=== PATIENT | male | born 1950 | race Caucasian/White ===

== ENCOUNTER 2017-09-12 17:25 | Outpatient (CLI) | payer OTHER ==
--- NOTE | 2017-09-13 09:30 | XRAY Report ---
TWO VIEW CHEST: 09/12/2017 CLINICAL INDICATION: Cough, shortness of breath. COMPARISON: 04/18/2013. FINDINGS: Frontal and lateral views of the chest demonstrate a normal cardiac silhouette. The lungs are clear. No effusion or pneumothorax is present. IMPRESSION: NORMAL CHEST. TD: 09/13/2017 09:29
== END 2017-09-12 17:26 | disposition home or self-care (01) ==
LOC: DI 17:25
PROVIDERS: ATTEND Physician Assistant
DX: R05 Cough (principal); R06.02 Shortness of breath
CPT/HCPCS: 71046

== ENCOUNTER 2019-03-30 08:00 | Outpatient (CLI) | payer OTHER ==
--- NOTE | 2019-03-30 09:34 | Ultrasound Report ---
Reason: RUQ POSTPRANDIAL PAIN Procedure Date: 03/30/2019 Accession Number: [id number] / [id number] Procedure: US - Abdomen Limited CPT Code: FULL RESULT: EXAM: ABDOMEN ULTRASOUND LIMITED, RUQ EXAM DATE: 03/30/2019 08:49 AM. CLINICAL HISTORY: Right upper quadrant postprandial pain. COMPARISON: None. TECHNIQUE: Real-time scanning was performed with static images obtained. FINDINGS: Liver: Normal in size and echotexture. There are 2 small incidental benign-appearing left hepatic cysts of no clinical significance. Vertical span is 14.2 cm. Main portal vein flow: Hepatopetal. Gallbladder: No evidence of wall thickening, positive sonographic Agudelo sign or cholelithiasis. Biliary System: CBD measures 3.0 mm. No intrahepatic or extrahepatic ductal dilatation. Other: Unremarkable right kidney with vertical span of 13.1 cm. IMPRESSION: 1. There are 2 small benign-appearing left hepatic cysts of no clinical significance. 2. Otherwise negative examination. RADIA
[2019-03-30] MEDS ORDERED: SINCALIDE 5 MCG VIAL ONE (10:00)
[2019-03-30] MEDS ORDERED: SINCALIDE 2 MCG in SODIUM CHLORIDE 0.9% 50 ML IV ONE (11:34)
--- NOTE | 2019-03-30 14:30 | Nuclear Medicine Report ---
Reason: ABDOMINAL AORTIC ANEURYSM, THORACIC AORTIC ANEURYS Procedure Date: 03/30/2019 Accession Number: [id number] Procedure: NM - Hepatobiliary HIDA w/ Rx CPT Code: FULL RESULT: EXAM: HEPATOBILIARY SCAN WITH CCK/KINEVAC ADMINISTRATION EXAM DATE: 03/30/2019 11:37 AM. CLINICAL HISTORY: Postprandial right upper quadrant pain. COMPARISON: None. TECHNIQUE: Following the intravenous administration of 5.3 mCi of Tc99m Mebrofenin, a hepatobiliary scan was done centered on the liver and gallbladder in multiple sequential images and projections. Following the intravenous administration of 2.0 mcg of CCK/ Kinevac over the course of approximately 60 minutes, dynamic imaging was done and the gallbladder ejection fraction was calculated. FINDINGS: Normal clearance of blood pool activity indicating grossly normal hepatocellular function. Liver size and shape grossly normal. Appearance of tracer in the biliary tree as early as 5 minutes, within normal limits. Appearance of tracer in the gallbladder as early as 10 minutes, within normal limits, with good progression of filling throughout the remainder of the initial hour. Appearance of tracer in the small bowel as early as 15 minutes. Following CCK administration, gallbladder ejection fraction is calculated to be 98%, within the normal range (> 35%). No evidence of significant enterogastric bile reflux. IMPRESSION: 1. No scintigraphic evidence of acute cholecystitis. 2. Patent common bile duct. 3. Gallbladder ejection fraction is in the normal range. 4. No evidence of significant enterogastric bile reflux. RADIA
== END 2019-03-30 08:01 | disposition home or self-care (01) ==
LOC: DI 08:00
PROVIDERS: ATTEND Surgery
DX: K82.8 Other specified diseases of gallbladder (principal); R10.11 Right upper quadrant pain; K76.89 Other specified diseases of liver
CPT/HCPCS: 76705; 78227; J7040

== ENCOUNTER 2022-03-06 08:00 | Outpatient (CLI) | payer MEDICARE, OTHER ==
[2022-03-06 18:08] LABS: BILIRUBIN,URINE NEGATIVE (NEGATIVE); GLUCOSE, URINE (UA) NEGATIVE (NEGATIVE); KETONES,URINE (UA) NEGATIVE (NEGATIVE); LEUKOCYTE ESTERASE, URINE SMALL (NEGATIVE); NITRITE,URINE NEGATIVE (NEGATIVE); OCCULT BLOOD,URINE TRACE-INTA (NEGATIVE); PH,URINE 5.5 PH (5.0-7.5); PROTEIN,URINE 30 mg/dL (NEGATIVE); UROBILINOGEN,URINE 0.2 (NORMAL) E.U./dL (NORMAL)
[2022-03-06 18:11] LABS: CLARITY,URINE HAZY (CLEAR)
[2022-03-06 18:24] LABS: WBC,URINE >25 /HPF (0-3)
[2022-03-06 18:25] LABS: BACTERIA,URINE Many /HPF (None Seen); RBC,URINE 0-5 /HPF (0-5); SQUAMOUS EPITHELIAL CELL,UR NONE SEEN (<= Few)
== END 2022-03-06 23:59 | disposition home or self-care (01) ==
LOC: LAB.S 08:00
PROVIDERS: ATTEND Emergency Medicine
DX: N41.0 Acute prostatitis (principal)
CPT/HCPCS: 81001; 87077; 87086; 87181

== ENCOUNTER 2022-11-24 06:56 | Outpatient (CLI) | payer MEDICARE, OTHER ==
--- NOTE | 2022-11-25 12:37 | Ultrasound Report ---
PROCEDURE: Head or Neck Soft Tissue INDICATIONS: ABN THYROID IMAGING TECHNIQUE: Real-time scanning was performed of the thyroid gland, with image documentation. COMPARISON: None FINDINGS: Right: Thyroid lobe measures 5.8 x 2.6 x 2.3 cm, and is heterogeneous in echotexture. Left: Thyroid lobe measures 7.3 x 3.3 x 2.8 cm, and is heterogeneous in echotexture. Isthmus: 6 mm thick. Nodule number: 1 Location: Right inferior Size: 1.6 x 1.5 x 1.2 cm. Composition: Solid. Echogenicity: Hypoechoic. Shape: wider than tall. Margins: Smooth (0 points). Echogenic foci: None (0 points). Total points: 4 ACR TI-RADS category: 4. Nodule number: 2 Location: Right [id number]-[id number] Size: 1.3 x 1.2 x 1.0 cm. Composition: Solid. Echogenicity: Hypoechoic. Shape: wider than tall. Margins: Smooth (0 points). Echogenic foci: None (0 points). Total points: 4 ACR TI-RADS category: 4. Nodule number: 3 Location: Right superior Size: 0.5 x 0.5 x 0.3 cm. Composition: Cystic. Echogenicity: Hypoechoic. Shape: wider than tall. Margins: Smooth (0 points). Echogenic foci: None (0 points). Total points: 2 ACR TI-RADS category: 2. Nodule number: 4 Location: Left Size: 0.6 x 0.7 x 0.5 cm. Composition: Cystic. Echogenicity: Anechoic. Shape: wider than tall. Margins: Smooth (0 points). Echogenic foci: None (0 points). Total points: 1 ACR TI-RADS category: 1. Nodule number: 5 Location: Left voo-nq-[id number] Size: 2.1 x 2.8 x 2.6 cm. Composition: Solid. Echogenicity: Hypoechoic. Shape: wider than tall. Margins: Smooth (0 points). Echogenic foci: None (0 points). Total points: 4 ACR TI-RADS category: 4. Nodule number: 6 Location: Right eqo-pr-eebixsik Size: 0.5 x 0.7 x 0.4 cm. Composition: Mixed solid and cystic. Echogenicity: Hypoechoic. Shape: wider than tall. Margins: Smooth (0 points). Echogenic foci: None (0 points). Total points: 3 ACR TI-RADS category: 3. IMPRESSION: 1. Multiple thyroid nodules are present. 2. Nodule #5 ([id number] left thyroid lobe) is moderately suspicious and meets the criteria for fine-needle aspiration biopsy. 3. Other nodules can be followed annually by ultrasound. ACR TI-RADS definitions and recommendations: TI-RADS 1 (benign): 0 points. FNA not needed. TI-RADS 2 (not suspicious): 2 points. FNA not needed. TI-RADS 3 (mildly suspicious): 3 points. "FNA if 2.5 cm or larger, follow up if 1.5 cm or larger (at 1, 3, and 5 years). TI-RADS 4 (moderately suspicious): 4-6 points. "FNA if 1.5 cm or larger, follow up if 1 cm or larger (at 1, 2, 3, and 5 years). TI-RADS 5 (highly suspicious): 7 points or more. "FNA if 1 cm or larger, follow up if 0.5 cm or larger (every year for 5 years). Reviewed by: Greg Pike MD on 11/25/2022 12:35 PM PDT Approved by: Greg Pike MD on 11/25/2022 12:35 PM PDT Station ID: [id number]
== END 2022-11-24 06:57 | disposition home or self-care (01) ==
LOC: DI 06:56
PROVIDERS: ATTEND Internal Medicine
DX: R06.09 Other forms of dyspnea (principal); R53.83 Other fatigue; R93.89 Abnormal findings on diagnostic imaging of other specified body structures; M62.81 Muscle weakness (generalized); E04.2 Nontoxic multinodular goiter

== ENCOUNTER 2022-12-17 07:00 | Outpatient (CLI) | payer MEDICARE, OTHER ==
--- NOTE | 2022-12-17 13:34 | XRAY Report ---
PROCEDURE: Femur 2V LT INDICATIONS: LEFT THIGH PAIN TECHNIQUE: 2 views of the femur were acquired. COMPARISON: None. FINDINGS: Bones: Partially seen mild to moderate left hip arthrosis. No displaced fracture or dislocation. Soft tissues: No suspicious calcifications. IMPRESSION: Mild hip arthrosis. No acute radiographic abnormality. If there is high concern for occult injury, co nsider repeat radiography or cross-sectional imaging. Reviewed by: Gasper Pryor MD on 12/17/2022 1:33 PM PDT Approved by: Gasper Pryor MD on 12/17/2022 1:33 PM PDT Station ID: [id number]
== END 2022-12-17 23:59 | disposition home or self-care (01) ==
LOC: DI.S 07:00
PROVIDERS: ATTEND Physician Assistant
DX: M16.12 Unilateral primary osteoarthritis, left hip (principal)

== ENCOUNTER 2023-04-29 13:50 | Outpatient (CLI) | payer MEDICARE, OTHER ==
--- NOTE | 2023-04-29 16:04 | XRAY Report ---
PROCEDURE: Lumbar Spine Complete INDICATIONS: OTHER LOW BACK PAIN TECHNIQUE: 4 views of the lumbar spine were acquired. COMPARISON: None. FINDINGS: Bones: 5 zvm-ddg-kyicfrr vertebrae are present. There are mild degenerative changes of the lower lum bar spine. Mild disc height loss and facet arthropathy. There is normal bony alignment. No vertebral body compression fractures. No suspicious bony lesions. No pars interarticularis defects are seen on oblique imaging. Soft tissues: Overlying bowel gas pattern is normal. No suspicious soft tissue calcifications. IMPRESSION: Mild degenerative changes of the lower lumbar spine. Reviewed by: Cesar Cameron MD on 04/29/2023 2:27 PM PDT Approved by: Cesar Cameron MD on 04/29/2023 2:27 PM PDT Station ID: [id number]
--- NOTE | 2023-04-29 16:04 | XRAY Report ---
PROCEDURE: Sacrum/Coccyx INDICATIONS: OTHER LOW BACK PAIN TECHNIQUE: 3 views of the sacrum and coccyx acquired. COMPARISON: None. FINDINGS: Bones: No fractures or dislocations. Sacroiliac joints appear within normal limits and symmetric. I ncidental note of mild to moderate bilateral hip joint space loss. No suspicious bony lesions. Soft tissues: Visualized bowel gas pattern is normal. No suspicious soft tissue densities. Several partially calcified pelvic phleboliths are seen. IMPRESSION: Intact sacrum and coccyx. Reviewed by: Selina Jones MD on 04/29/2023 3:10 PM PDT Approved by: Selina Jones MD on 04/29/2023 3:10 PM PDT Station ID: [id number]
== END 2023-04-29 13:51 | disposition home or self-care (01) ==
LOC: DI 13:50
PROVIDERS: ATTEND Internal Medicine
DX: M47.816 Spondylosis without myelopathy or radiculopathy, lumbar region (principal)

== ENCOUNTER 2023-05-24 07:39 | Outpatient (CLI) | payer MEDICARE, OTHER ==
--- NOTE | 2023-05-24 12:02 | MRI Report ---
PROCEDURE: PELVIS WO INDICATIONS: FALL FROM LADDER, PAIN BUTTOCK TECHNIQUE: Noncontrast coronal T1 spin echo and STIR through the bony pelvis. Sagittal T2 FSE with fat saturati on, oblique axial PD FSE and T2 FSE with fat saturation through the symphysis pubis. COMPARISON: None. FINDINGS: Image quality: Excellent. MRI of the pelvis shows a some marrow edema present surrounding the facet joints at L5-S1 with some e dematous changes in the surrounding soft tissues suggesting acute inflammation. There appear to be bilateral pars defects present at L5-S1. There is a 2 cm bony lesion within the patient's left iliac crest. Given the imaging findings I canno t exclude a metastasis and clinical correlation is recommended. There is diffuse bladder wall thickening and bladder diverticula present. There is a questionable sof t tissue thickening along the left aspect of the bladder wall. Given the imaging findings I cannot ex clude a bladder neoplasm and I recommend direct visualization. There is an enlarged prostate gland present. There is an enlarged left inguinal lymph node present measuring 1.9 cm in maximal dimension. There is colonic diverticulosis present. Musculature appears symmetric. There are no loculated fluid collections. There is moderate osteoarthritic degenerative change involving both hips. IMPRESSION: 1. Mild to moderate marrow edema and inflammatory changes surrounding the facet joints at L5-S1 bilat erally suggesting acute inflammation. 2. Apparent bilateral pars defects present at L5-S1. 3. Questionable thickening along the left bladder wall. Given the imaging findings I cannot exclude n eoplasm and I would recommend direct visualization. 4. Diffuse bladder wall thickening with bladder diverticuli and enlarged prostate gland suggesting so me degree of bladder obstruction. 5. Bony lesion in the left iliac crest measuring 2 cm. Given the imaging findings I cannot exclude a metastatic lesion. Recommend clinical correlation. 6. Colonic diverticulosis. 7. Moderate osteoarthritic type degenerative change involving both hips. 8. Single enlarged 1.9 cm left inguinal lymph node. Reviewed by: Gilberto Coffman MD on 05/24/2023 12:00 PM PST Approved by: Gilberto Coffman MD on 05/24/2023 12:00 PM PST Station ID: [id number]
== END 2023-05-24 07:40 | disposition home or self-care (01) ==
LOC: DI 07:39
PROVIDERS: ATTEND Internal Medicine
DX: M54.59 Other low back pain (principal); R93.7 Abnormal findings on diagnostic imaging of other parts of musculoskeletal system; N32.3 Diverticulum of bladder; N40.0 Benign prostatic hyperplasia without lower urinary tract symptoms; K57.30 Diverticulosis of large intestine without perforation or abscess without bleeding; M16.0 Bilateral primary osteoarthritis of hip; R59.0 Localized enlarged lymph nodes

== ENCOUNTER 2023-06-16 08:00 | Outpatient (CLI) | payer MEDICARE, OTHER ==
[2023-06-16 16:16] LABS: BILIRUBIN,URINE NEGATIVE (NEGATIVE); GLUCOSE, URINE (UA) NEGATIVE (NEGATIVE); KETONES,URINE (UA) NEGATIVE (NEGATIVE); LEUKOCYTE ESTERASE, URINE NEGATIVE (NEGATIVE); NITRITE,URINE NEGATIVE (NEGATIVE); OCCULT BLOOD,URINE SMALL (NEGATIVE); PH,URINE 6.5 PH (5.0-7.5); PROTEIN,URINE TRACE mg/dL (NEGATIVE); UROBILINOGEN,URINE 0.2 (NORMAL) E.U./dL (NORMAL)
[2023-06-16 16:29] LABS: BACTERIA,URINE Rare /HPF (None Seen); CLARITY,URINE CLEAR (CLEAR); RBC,URINE 0-5 /HPF (0-5); SQUAMOUS EPITHELIAL CELL,UR RARE Squamous (<= Few); WBC,URINE 0-3 /HPF (0-3)
[2023-06-16 16:30] LABS: MUCUS,URINE Moderate Strands
== END 2023-06-16 23:59 | disposition home or self-care (01) ==
LOC: LAB 08:00
PROVIDERS: ATTEND Urology
DX: R31.9 Hematuria, unspecified (principal)
CPT/HCPCS: 81001; 87086

== ENCOUNTER 2023-09-06 10:05 | Outpatient (CLI) | payer MEDICARE, OTHER ==
[2023-09-06 10:21] LABS: BASOPHILS # (AUTO) 0.1 10^3/uL (0.0-0.1); BASOPHILS % (AUTO) 0.7 %; EOSINOPHILS # (AUTO) 0.1 10^3/uL (0.0-0.7); EOSINOPHILS % (AUTO) 1.4 %; HCT - HEMATOCRIT 49.4 % (42.0-52.0); HGB - HEMOGLOBIN 15.7 g/dL (14.0-18.0); LYMPHOCYTES # (AUTO) 1.1 10^3/uL (1.5-3.5); LYMPHOCYTES % (AUTO) 14.4 %; MEAN CORPUSCULAR HEMOGLOBIN 29.8 pg (27.0-31.0); MEAN CORPUSCULAR HGB CONC 31.8 g/dL (32.0-36.0); MEAN CORPUSCULAR VOLUME 93.7 fL (80.0-94.0); MEAN PLATELET VOLUME 9.6 fL (7.4-11.4); MONOCYTES # (AUTO) 0.5 10^3/uL (0.0-1.0); MONOCYTES % (AUTO) 7.1 %; NEUTROPHILS # (AUTO) 5.6 10^3/uL (1.5-6.6); PLT - PLATELET COUNT 179 10^3/uL (130-450); RED BLOOD COUNT 5.27 10^6/uL (4.70-6.10); RED CELL DISTRIBUTION WIDTH 13.2 % (12.0-15.0); WHITE BLOOD COUNT 7.3 x10^3/uL (4.8-10.8)
[2023-09-06 10:36] LABS: ESTIMATED AVERAGE GLUCOSE 108 mg/dL (70-100); HEMOGLOBIN A1c% 5.4 % (4.27-6.07)
[2023-09-06 10:40] LABS: % IRON SATURATION 45 % (20-50); ALBUMIN 4.2 g/dL (3.2-5.5); ALBUMIN/GLOBULIN RATIO 1.3 (1.0-2.2); ALKALINE PHOSPHATASE 76 IU/L (42-121); ALT ALANINE AMINOTRANSFERASE 14 IU/L (10-60); AST ASPARTATE AMINOTRANSFERASE 15 IU/L (10-42); BILIRUBIN,TOTAL 0.6 mg/dL (0.2-1.0); BUN - BLOOD UREA NITROGEN 15 mg/dL (6-20); CALCIUM 9.8 mg/dL (8.5-10.3); CARBON DIOXIDE - CO2 29 mmol/L (21-32); CHLORIDE 104 mmol/L (101-111); CHOL/HDL RATIO 4.1 (<5.0); CHOLESTEROL 190 mg/dL; GFR - MDRD 74 (>89); GLUCOSE 96 mg/dL (74-104); HDL CHOLESTEROL 46 mg/dL; IRON 160 ug/dL (50-212); LDL CHOLESTEROL,CALCULATED 124 mg/dL; LDL/HDL RATIO 2.7 (<3.6); POTASSIUM 3.9 mmol/L (3.5-4.5); SODIUM 136 mmol/L (135-145); TOTAL IRON BINDING CAPACITY 356 ug/dL (250-450); TOTAL PROTEIN 7.5 g/dL (6.4-8.9); TRANSFERRIN 254 mg/dL (203-362); TRIGLYCERIDES 101 mg/dL (48-352); VLDL CHOLESTEROL 20 mg/dL
[2023-09-06 10:52] LABS: THYROID STIMULATING HORMONE 0.33 uIU/mL (0.34-5.60)
[2023-09-06 11:00] LABS: FERRITIN 19.8 ng/mL (23.9-336.2)
== END 2023-09-06 10:06 | disposition home or self-care (01) ==
LOC: LAB 10:05
PROVIDERS: ATTEND Internal Medicine
DX: R53.83 Other fatigue (principal); R53.1 Weakness; Z13.9 Encounter for screening, unspecified; E55.9 Vitamin D deficiency, unspecified; E61.1 Iron deficiency; E53.8 Deficiency of other specified B group vitamins; Z80.42 Family history of malignant neoplasm of prostate
CPT/HCPCS: 36415; 80053; 80061; 82306; 82607; 82728; 83036; 83540; 83721; 84153; 84439; 84443; 84466; 84481; 85025

== ENCOUNTER 2024-01-03 13:12 | Outpatient (CLI) | payer MEDICARE, OTHER | END 2024-01-03 13:13 | disposition home or self-care (01) | LOC: LAB 13:12 | PROVIDERS: ATTEND Urology | DX: R39.9 Unspecified symptoms and signs involving the genitourinary system (principal); R33.9 Retention of urine, unspecified | CPT/HCPCS: 87086 ==

== ENCOUNTER 2024-03-19 11:03 | Outpatient (CLI) | payer MEDICARE, OTHER | END 2024-03-19 11:04 | disposition home or self-care (01) | LOC: LAB 11:03 | DX: R39.9 Unspecified symptoms and signs involving the genitourinary system (principal); R33.9 Retention of urine, unspecified | CPT/HCPCS: 87086 ==